=== PATIENT | female | born 1965 | race Caucasian/White ===

== ENCOUNTER 2018-12-04 13:35 | Emergency (ER) | payer OTHER ==
[2018-12-04] MEDS ORDERED: Meclizine HCl 25 MG TAB ONE (14:16)
--- NOTE | 2018-12-04 15:11 | RAD ---
CERVICAL SPINE THREE VIEWS: HISTORY: Neck pain with right arm radiculopathy. FINDINGS: Disk space narrowing and minimal degenerative retrolisthesis at the C5-C6 level. Minimal degenerativ e spondylolisthesis at the C6-C7 level. There is straightening of the normal lordotic curvature. Os teophytosis throughout the vertebral bodies and facets. No acute fracture or dislocation is apparent . The cervicothoracic junction is intact. IMPRESSION: 1. Degenerative changes cervical spine. 2. No acute osseous abnormalities demonstrated. POS: MANA
== END 2018-12-04 14:51 | disposition home or self-care (01) ==
LOC: ERS 13:35
DX: M54.12 Radiculopathy, cervical region (principal); R42 Dizziness and giddiness; E11.9 Type 2 diabetes mellitus without complications; J43.9 Emphysema, unspecified; I10 Essential (primary) hypertension; F17.210 Nicotine dependence, cigarettes, uncomplicated; Z79.899 Other long term (current) drug therapy
CPT/HCPCS: 72040

== ENCOUNTER 2020-05-06 17:08 | Emergency (ER) | payer OTHER ==
[2020-05-06 17:46] LABS: #Basophils 0.1 thou/uL (0.0-0.2); #Eosinphils 0.1 thou/uL (0.0-0.7); #Monocytes 0.5 thou/uL (0.11-0.59); #Neutrophils 4.1 thou/uL (1.40-6.50); %Eosinophils 0.9 % (0.0-10.0); %Lymphocytes 38.6 % (21.0-51.0); %Monocytes 6.4 % (0.0-10.0); %Neutrophils 53.1 % (42.0-75.0); Hemoglobin 14.9 g/dL (12.0-16.0); Mean Corpuscular Hemoglobin 31.8 pg (27.0-31.0); Mean Corpuscular Volume 96.2 fL (78.0-98.0); Mean Platelet Volume 6.7 fL (7.4-10.4); Platelet Count 303 thou/uL (130-400); RBC Distribution Width 11.8 % (11.5-14.5); White Blood Cell (WBC) Count 7.7 thou/uL (4.8-10.8)
[2020-05-06] MEDS ORDERED: Ketorolac Tromethamine 30 MG/ML VIAL ONE (17:53)
[2020-05-06 18:10] LABS: ALT (SGPT) 28 U/L (8-55); AST (SGOT) 30 U/L (5-34); Albumin 4.2 g/dL (3.5-5.0); Alkaline Phosphatase 61 U/L (40-110); Anion Gap 16 mmol/L (10-20); BUN (Urea Nitrogen) 5 mg/dL (9.8-20.1); Bilirubin, Total Less than 0.2 mg/dL (0.2-1.2); Calc. Creatinine Clearance 0 mL/min (70-130); Calcium 9.1 mg/dL (7.8-10.44); Carbon Dioxide 21 mmol/L (22-29); Chloride 104 mmol/L (98-107); Estimated GFR-MDRD Greater than 90; Globulin 2.6 g/dL (2.4-3.5); Glucose 142 mg/dL (70-105); Potassium 3.4 mmol/L (3.5-5.1); Protein, Total 6.8 g/dL (6.0-8.3); Sodium 138 mmol/L (136-145)
--- NOTE | 2020-05-06 18:21 | RAD ---
Chest AP view INDICATION: Shortness of breath and chest palpitations COMPARISON: June 10, 2017 2 view chest radiograph FINDINGS: Lungs: Chronic lung changes are stable. Calcified granuloma the right upper lobe is stable. Cardiac silhouette: The cardiomediastinal silhouette appears within normal limits. Pulmonary vasculature: Normal Pleural spaces: No pleural effusion or pneumothorax is demonstrated. Upper abdomen: No abnormality seen. Osseous structures: No acute osseous abnormality. Additional findings: Calcified of the aortic arch is stable IMPRESSION: No acute cardiopulmonary abnormality.
== END 2020-05-06 20:46 | disposition home or self-care (01) ==
LOC: ERS 17:08
DX: S29.011A Strain of muscle and tendon of front wall of thorax, initial encounter (principal); M94.0 Chondrocostal junction syndrome [Tietze]; R06.02 Shortness of breath; F41.9 Anxiety disorder, unspecified; F17.210 Nicotine dependence, cigarettes, uncomplicated; J43.9 Emphysema, unspecified; E11.9 Type 2 diabetes mellitus without complications; I10 Essential (primary) hypertension; Z79.899 Other long term (current) drug therapy; X58.XXXA Exposure to other specified factors, initial encounter
CPT/HCPCS: 71045; 80053; 85025; 93005; 96372; J1885

== ENCOUNTER 2021-09-04 17:25 | Observation (INO) | payer SELFPAY ==
[~2021-09-04 17:25] MED LIST: Iopamidol 370 76% 100 ML VIAL ONE
[2021-09-04 17:54] LABS: #Lymphocytes 1.4 thou/uL (1.20-3.40); #Monocytes 0.4 thou/uL (0.11-0.59); #Neutrophils 9.8 thou/uL (1.40-6.50); %Basophils 0.4 % (0.0-1.0); %Eosinophils 0.4 % (0.0-10.0); %Monocytes 3.3 % (0.0-10.0); Hemoglobin 13.7 g/dL (12.0-16.0); Mean Corpuscular HGB CONC 34.1 g/dL (32.0-36.0); Mean Corpuscular Hemoglobin 33.5 pg (27.0-31.0); Mean Platelet Volume 6.2 fL (7.4-10.4); Platelet Count 352 thou/uL (130-400); RBC Distribution Width 12.3 % (11.5-14.5); Red Blood Cell (RBC) Count 4.09 mill/uL (4.20-5.40); White Blood Cell (WBC) Count 11.7 thou/uL (4.8-10.8)
[2021-09-04 18:15] LABS: ALT (SGPT) 12 U/L (8-55); AST (SGOT) 13 U/L (5-34); Albumin 3.8 g/dL (3.5-5.0); Alkaline Phosphatase 53 U/L (40-110); Anion Gap 12 mmol/L (10-20); BUN (Urea Nitrogen) 9 mg/dL (9.8-20.1); Bilirubin, Total 0.3 mg/dL (0.2-1.2); CK (CPK) 41 U/L (29-168); Calc. Creatinine Clearance 0 mL/min (70-130); Calcium 9.2 mg/dL (7.8-10.44); Carbon Dioxide 25 mmol/L (22-29); Chloride 103 mmol/L (98-107); Globulin 2.8 g/dL (2.4-3.5); Glucose 107 mg/dL (70-105); Magnesium 1.9 mg/dL (1.6-2.6); Potassium 3.7 mmol/L (3.5-5.1); Protein, Total 6.6 g/dL (6.0-8.3); Sodium 136 mmol/L (136-145)
[2021-09-04 19:00] LABS: Bilirubin Negative (Negative); Blood, Urine Negative (Negative); Clarity Clear (Clear); Glucose, Urine (Dipstick) Normal (Negative); Ketone, Urine Negative (Negative); Leukocyte Negative Leu/uL (Negative); Nitrite Negative (Negative); Protein, Urine (Dipstick) Negative (Neg-Trace); Urobilinogen Normal mg/dL (Less than 2)
[2021-09-04] MEDS ORDERED: Acetaminophen 325 MG TAB PO PRN (21:46)
[2021-09-04] MEDS ORDERED: Nitroglycerin 0.4 MG TAB (25 Tab Bottle) SL PRN (21:48)
[2021-09-04 21:57] LABS: Troponin I Less than 0.010 ng/mL (< 0.028)
[2021-09-04] MEDS ORDERED: Aspirin 325 MG TAB ONE (22:46)
[2021-09-04] MEDS ORDERED: Aspirin 325 MG TAB PO SCH (23:00)
[2021-09-05 00:09] VITALS: BMI 24.2
[2021-09-05 01:56] LABS: Troponin I Less than 0.010 ng/mL (< 0.028)
[2021-09-05 05:31] LABS: #Eosinphils 0.1 thou/uL (0.0-0.7); #Lymphocytes 1.9 thou/uL (1.20-3.40); #Monocytes 0.4 thou/uL (0.11-0.59); #Neutrophils 3.1 thou/uL (1.40-6.50); %Basophils 0.6 % (0.0-1.0); %Eosinophils 1.5 % (0.0-10.0); %Lymphocytes 33.6 % (21.0-51.0); %Neutrophils 56.3 % (42.0-75.0); Mean Corpuscular HGB CONC 33.4 g/dL (32.0-36.0); Mean Corpuscular Hemoglobin 32.9 pg (27.0-31.0); Mean Corpuscular Volume 98.5 fL (78.0-98.0); Mean Platelet Volume 6.5 fL (7.4-10.4); Platelet Count 308 thou/uL (130-400); RBC Distribution Width 12.4 % (11.5-14.5); Red Blood Cell (RBC) Count 3.65 mill/uL (4.20-5.40); White Blood Cell (WBC) Count 5.5 thou/uL (4.8-10.8)
[2021-09-05 05:49] LABS: Anion Gap 10 mmol/L (10-20); BUN (Urea Nitrogen) 8 mg/dL (9.8-20.1); Calc. Creatinine Clearance 98 mL/min (70-130); Calcium 8.2 mg/dL (7.8-10.44); Carbon Dioxide 23 mmol/L (22-29); Chloride 111 mmol/L (98-107); Glucose 81 mg/dL (70-105); Potassium 3.8 mmol/L (3.5-5.1); Sodium 140 mmol/L (136-145)
[2021-09-05] MEDS ORDERED: Senokot S 8.6-50 MG TAB PO PRN (08:24)
[2021-09-05] MEDS ORDERED: Bisacodyl 5 MG TAB PO PRN (08:24)
[2021-09-05] MEDS ORDERED: Calcium Carbonate 500 MG ChewTAB PO PRN (08:24)
[2021-09-05] MEDS ORDERED: Ondansetron ODT 4 MG TAB PO PRN (08:24)
[2021-09-05] MEDS ORDERED: Zolpidem Tartrate 5 MG TAB PO PRN (08:24)
[2021-09-05] MEDS ORDERED: hydrALAZINE 20 MG/ML VIAL SLOW IVP PRN (08:24)
[2021-09-05] MEDS ORDERED: Ondansetron PF 4 MG/2 ML Vial IVP PRN (08:24)
[2021-09-05] MEDS ORDERED: Hydrocerin (Eucerin) Cream 120 gm Jar TOP PRN (08:24)
[2021-09-05] MEDS ORDERED: HYDROcodone/Acetaminophen 5/325 mg Tablet PO PRN (08:24)
[2021-09-05] MEDS ORDERED: GUAIFENESIN SF SOLN 200 MG/10 ML UDCUP PO PRN (08:24)
[2021-09-05] MEDS ORDERED: Loperamide HCl 2 MG CAP PO PRN (08:24)
[2021-09-05] MEDS ORDERED: Benzonatate 100 MG CAP PO PRN (08:24)
[2021-09-05] MEDS ORDERED: Loratadine 10 MG TAB PO PRN (08:24)
[2021-09-05] MEDS ORDERED: Cepastat Lozenges 1 LOZ PO PRN (08:24)
[2021-09-05] MEDS ORDERED: Sodium Chloride 0.65% Nasal 44 ML BOT EA NARE PRN (08:24)
[2021-09-05] MEDS ORDERED: FLU VACC QS2021-22(6MOS UP)/PF 60 MCG/0.5 ML SYRINGE IM ONE (09:00)
[2021-09-05] MEDS ORDERED: Regadenoson 0.4 MG/5 ML SYRINGE ONE (11:39)
[2021-09-05 12:06] VITALS: BP 120/72; TEMP 98.4
[2021-09-05 15:41] LABS: SARS-CoV-2 PCR by NAA Not Detected (NotDetected)
== END 2021-09-05 12:25 | disposition home or self-care (01) ==
LOC: ERS 17:25 → 2SW 20:58
PROVIDERS: ADMIT Student in an Organized Health Care Education/Training Program; ATTEND Internal Medicine
DX: R00.2 Palpitations (principal); D72.829 Elevated white blood cell count, unspecified; I10 Essential (primary) hypertension; J44.9 Chronic obstructive pulmonary disease, unspecified; F17.210 Nicotine dependence, cigarettes, uncomplicated; Z20.822 Contact with and (suspected) exposure to COVID-19; Z79.899 Other long term (current) drug therapy
CPT/HCPCS: 36415; 71045; 71275; 78452; 80048; 80053; 81003; 82550; 83605; 83735; 83880; 84443; 84484; 85025; 85379; 93005; 93017; A9500; G0378; J2785; Q9967; U0003; U0005

== ENCOUNTER 2021-09-21 20:09 | Inpatient (IN) | payer SELFPAY ==
[2021-09-21 20:35] LABS: #Lymphocytes 1.1 thou/uL (1.20-3.40); #Monocytes 0.5 thou/uL (0.11-0.59); #Neutrophils 2.6 thou/uL (1.40-6.50); %Basophils 0.7 % (0.0-1.0); %Eosinophils 0.2 % (0.0-10.0); %Neutrophils 61.2 % (42.0-75.0); Hemoglobin 14.3 g/dL (12.0-16.0); Mean Platelet Volume 6.2 fL (7.4-10.4); Platelet Count 254 thou/uL (130-400); RBC Distribution Width 12.6 % (11.5-14.5); Red Blood Cell (RBC) Count 4.22 mill/uL (4.20-5.40); White Blood Cell (WBC) Count 4.3 thou/uL (4.8-10.8)
[2021-09-21 21:03] LABS: ALT (SGPT) 13 U/L (8-55); AST (SGOT) 18 U/L (5-34); Albumin 3.7 g/dL (3.5-5.0); Alkaline Phosphatase 54 U/L (40-110); Anion Gap 15 mmol/L (10-20); BUN (Urea Nitrogen) 11 mg/dL (9.8-20.1); Bilirubin, Total 0.2 mg/dL (0.2-1.2); Calc. Creatinine Clearance 0 mL/min (70-130); Calcium 8.5 mg/dL (7.8-10.44); Carbon Dioxide 20 mmol/L (22-29); Globulin 2.6 g/dL (2.4-3.5); Glucose 75 mg/dL (70-105); Potassium 4.3 mmol/L (3.5-5.1); Protein, Total 6.3 g/dL (6.0-8.3)
[2021-09-21 21:06] LABS: Chloride 105 mmol/L (98-107); Sodium 136 mmol/L (136-145)
[2021-09-21] MEDS ORDERED: Aspirin 81 mg Enteric Coated Tablet ONE (22:26)
[2021-09-21] MEDS ORDERED: Ondansetron ODT 4 MG TAB PO PRN (23:54)
[2021-09-21] MEDS ORDERED: Acetaminophen 650 MG Suppository PR PRN (23:54)
[2021-09-21] MEDS ORDERED: Ondansetron PF 4 MG/2 ML Vial IVP PRN (23:54)
[2021-09-21] MEDS ORDERED: Acetaminophen 325 MG TAB PO PRN (23:54)
[2021-09-22] MEDS ORDERED: Morphine 4 MG/ML VIAL SLOW IVP PRN (00:06)
[2021-09-22 00:14] LABS: Troponin I Less than 0.010 ng/mL (< 0.028)
[2021-09-22 00:35] VITALS: BMI 22.6
[2021-09-22] MEDS: Nitroglycerin 2% Ointment 1 INCH/1 GM Packet TOP SCH ×2 (01:10→08:55)
[2021-09-22] MEDS ORDERED: Dextrose 5% in Water 1,000 ML IV PRN (01:31)
[2021-09-22] MEDS ORDERED: Dextrose 50% Abboject 50 ML SYRINGE SLOW IVP PRN (01:31)
[2021-09-22] MEDS ORDERED: HumaLOG 300 UNITS/3 ML VIAL SC PRN (01:31)
[2021-09-22 02:23] LABS: #Lymphocytes 0.9 thou/uL (1.20-3.40); #Monocytes 0.3 thou/uL (0.11-0.59); #Neutrophils 1.5 thou/uL (1.40-6.50); %Basophils 0.4 % (0.0-1.0); %Eosinophils 0.4 % (0.0-10.0); %Lymphocytes 32.2 % (21.0-51.0); Hemoglobin 13.2 g/dL (12.0-16.0); Mean Corpuscular HGB CONC 33.3 g/dL (32.0-36.0); Mean Corpuscular Hemoglobin 33.4 pg (27.0-31.0); Mean Platelet Volume 6.1 fL (7.4-10.4); Platelet Count 220 thou/uL (130-400); RBC Distribution Width 12.6 % (11.5-14.5); Red Blood Cell (RBC) Count 3.95 mill/uL (4.20-5.40); White Blood Cell (WBC) Count 2.8 thou/uL (4.8-10.8)
[2021-09-22 02:48] LABS: Troponin I Less than 0.010 ng/mL (< 0.028)
[2021-09-22 02:54] LABS: Anion Gap 10 mmol/L (10-20); BUN (Urea Nitrogen) 14 mg/dL (9.8-20.1); Calc. Creatinine Clearance 73 mL/min (70-130); Calcium 8.6 mg/dL (7.8-10.44); Carbon Dioxide 26 mmol/L (22-29); Chloride 106 mmol/L (98-107); Glucose 95 mg/dL (70-105); Potassium 3.8 mmol/L (3.5-5.1); Sodium 138 mmol/L (136-145)
[2021-09-22] MEDS: Aspirin Chewable 81 MG TAB PO SCH (08:43)
[2021-09-22] MEDS: Enoxaparin Sodium 40 MG/0.4 ML SYRINGE SC SCH (08:43)
[2021-09-22 14:13] LABS: SARS-CoV-2 PCR by NAA Not Detected (NotDetected)
[2021-09-22] MEDS: Nicotine 21 MG PATCH TD SCH (15:08)
[2021-09-22] MEDS: methylPREDNISolone Sod Succ 40 MG VIAL IVP SCH ×2 (15:08→18:56)
[2021-09-22] MEDS: guaiFENesin ER 600 MG TAB PO SCH (21:01)
[2021-09-23] MEDS: methylPREDNISolone Sod Succ 40 MG VIAL IVP SCH ×3 (05:52→11:40)
[2021-09-23] MEDS: HumaLOG 300 UNITS/3 ML VIAL SC PRN ×2 (05:58→11:41)
[2021-09-23] MEDS: Aspirin Chewable 81 MG TAB PO SCH (09:08)
[2021-09-23] MEDS: guaiFENesin ER 600 MG TAB PO SCH (09:08)
[2021-09-23] MEDS: Enoxaparin Sodium 40 MG/0.4 ML SYRINGE SC SCH (09:08)
[2021-09-23] MEDS: Nicotine 21 MG PATCH TD SCH (09:11)
[2021-09-23 12:06] VITALS: BP 110/64; TEMP 97.6
== END 2021-09-23 12:46 | disposition home or self-care (01) | DRG 190 ==
LOC: ERS 20:09 → 2SW 22:41 → OBSVTOIN 09-22 11:51
PROVIDERS: ADMIT Student in an Organized Health Care Education/Training Program; ATTEND Family Medicine
DX: J44.1 Chronic obstructive pulmonary disease with (acute) exacerbation (principal); J18.9 Pneumonia, unspecified organism; Z20.822 Contact with and (suspected) exposure to COVID-19; E11.9 Type 2 diabetes mellitus without complications; J44.0 Chronic obstructive pulmonary disease with (acute) lower respiratory infection; F17.210 Nicotine dependence, cigarettes, uncomplicated; D75.89 Other specified diseases of blood and blood-forming organs; I10 Essential (primary) hypertension; Z79.51 Long term (current) use of inhaled steroids; Z90.49 Acquired absence of other specified parts of digestive tract; Z71.6 Tobacco abuse counseling
CPT/HCPCS: 36415; 36416; 71045; 71275; 80048; 80053; 82607; 82746; 83880; 84484; 85025; 85379; 85652; 86140; 93005; 93306; 94640; 94760; J1650; J1815; J2920; J7620; U0003; U0005